=== PATIENT | male | born 1970 | race Caucasian/White ===

== ENCOUNTER → 2019-02-08 | Outpatient (CLI) | payer BC ==
--- NOTE | 2019-02-10 15:31 | MR ---
EXAMINATION TYPE: MR lumbar spine wo con DATE OF EXAM: 02/08/2019 COMPARISON: None HISTORY: LBP, center/right side x 5 yrs, no trauma/surgery TECHNIQUE: Multiplanar, multisequence images of the lumbar spine were acquired. FINDINGS: Schmorl's node is seen of the superior endplate of L2 anteriorly. T2/T1 hyperintense verteb ral body hemangioma is incidentally seen of S1. Bone marrow signal is otherwise unremarkable. Lumbar spine vertebral bodies maintain normal vertebral body heights and alignment. Conus medullaris is unre markable terminating at L2. There is a questionable T2 hyperintensity T1 hypointense right renal lesi on on axial image 23 measuring 6 mm, too small to accurately characterize and incompletely characteri zed on this exam. L1-L2: Disc desiccation is seen with mild facet arthropathy. No neural foraminal narrowing or spinal canal stenosis. L2-L3: Left eccentric broad-based disc bulge and facet arthropathy result in mild bilateral neural fo raminal narrowing, left greater than right. No spinal canal stenosis. L3-L4: Broad-based disc bulge and facet arthropathy are seen without spinal canal stenosis. Very mini mal bilateral neural foraminal narrowing. L4-L5: Broad-based disc bulge and facet arthropathy are seen resulting in mild left neural foraminal narrowing. Spinal canal and right neuroforamen are patent. L5-S1: Small central disc herniation and broad-based disc bulge with facet arthropathy resulting in m ild bilateral neural foraminal narrowing. No spinal canal stenosis. IMPRESSION: 1. Small central disc herniation at L5-S1 without spinal canal stenosis. Bilateral mild neural forami nal narrowing at this level. 2. Degenerative disc disease is seen throughout the lumbar spine with mild left neural foraminal narr owing at L4-L5, mild bilateral neural foraminal narrowing at L2-L3, and very minimal bilateral neural foraminal narrowing at L3-L4.
== END | disposition home or self-care (01) ==
LOC: RADMRIMAIN 19:30
PROVIDERS: ATTEND Internal Medicine
DX: M51.27 Other intervertebral disc displacement, lumbosacral region (principal); M48.07 Spinal stenosis, lumbosacral region; M51.36 Other intervertebral disc degeneration, lumbar region
CPT/HCPCS: 72148